=== PATIENT | male | born 1995 | race Caucasian/White ===

== ENCOUNTER 2019-06-01 10:09 | Day surgery (SDC) | payer OTHER ==
[2019-05-31 15:43] VITALS: BMI 22.9
[2019-06-01] VITALS (15 sets, daily range): BP systolic 105–135; BP diastolic 51–66; PULSE 60–88; RESP 13–22; Ht 172.7 cm; Wt 66.2 kg
[~2019-06-01] VITALS: Ht 172.7 cm; Wt 66.2 kg
[2019-06-01] MEDS ORDERED: MIDAZOLAM 1 MG/ML 2 ML INJ ONE (13:25)
[2019-06-01] MEDS ORDERED: PROPOFOL 20 ML ONE (13:25)
[2019-06-01] MEDS ORDERED: LIDOCAINE 2% (SDV) 5 ML INJ ONE (13:25)
[2019-06-01] MEDS ORDERED: ROCURONIUM 50 MG INJ ONE (13:25)
[2019-06-01] MEDS ORDERED: FENTAnyl 50 MCG/ML VIAL ONE (13:25)
[2019-06-01] MEDS ORDERED: CEFAZOLIN 1 GM INJ ONE (13:25)
[2019-06-01] MEDS ORDERED: METOCLOPRAMIDE 10 MG INJ ONE (13:49)
[2019-06-01] MEDS ORDERED: ONDANSETRON 4 MG INJ ONE ×2 (13:49→14:32)
[2019-06-01] MEDS ORDERED: FAMOTIDINE 20 MG INJ ONE (13:50)
[2019-06-01] MEDS ORDERED: DEXAMETHASONE 4 MG/ML 5 ML INJ ONE (13:50)
[2019-06-01] MEDS ORDERED: BUPIVACAINE 0.5% (SDV) 30 ML INJ ONE (13:57)
[2019-06-01] MEDS ORDERED: POLYMYXIN/BACITRACIN 1L IRRIG ONE (13:57)
[2019-06-01] MEDS ORDERED: LIDOCAINE 1.5%/EPI MPF (SDV) 30 ML VIAL ONE (13:57)
[2019-06-01] MEDS ORDERED: GLYCOPYRROLATE 0.4 MG INJ ONE (14:00)
[2019-06-01] MEDS ORDERED: NEOSTIGMINE 3 MG/3 ML SYRINGE ONE (14:00)
[2019-06-01] MEDS ORDERED: NEOMYC/POLYMYX/BACIT 30 GM OINT ONE (14:13)
[2019-06-01] MEDS ORDERED: KETOROLAC 30 MG INJ ONE (14:14)
[2019-06-01] MEDS ORDERED: LACTATED RINGER'S 1,000 ML IV SCH (14:22)
[2019-06-01] MEDS ORDERED: HYDROmorphONE 1 MG/5 ML IV SYRINGE IV PRN ×3 (14:30)
[2019-06-01] MEDS ORDERED: ONDANSETRON 4 MG INJ IV PRN ×2 (14:30)
[2019-06-01] MEDS ORDERED: OXYCODONE/ACETAMINOPHEN (5/325) TAB PO PRN ×3 (14:30)
[2019-06-01] MEDS ORDERED: MEPERIDINE 25 MG INJ IV PRN (14:30)
[2019-06-01] MEDS ORDERED: MEPERIDINE 25 MG INJ ONE (14:31)
== END 2019-06-01 16:11 | disposition home or self-care (01) ==
LOC: SDS 10:09
PROVIDERS: ATTEND Colon & Rectal Surgery
DX: L05.01 Pilonidal cyst with abscess (principal)
CPT/HCPCS: 11772; J0690; J1100; J1885; J2175; J2250; J2405; J2710; J2765; J3010; Z7512; Z7610; 88304